=== PATIENT | male | born 1985 | race Caucasian/White ===

== ENCOUNTER 2020-04-18 00:16 | Emergency (ER) | payer OTHER ==
[~2020-04-18] VITALS: Ht 154.9 cm; Wt 68.0 kg
[2020-04-18] MEDS ORDERED: HALDOL DEC100 MG/1 M IM (00:31)
[2020-04-18] MEDS ORDERED: RESTORIL30 M1 PO (00:33)
[2020-04-18] MEDS ORDERED: ATIVAN1 M1 PO (00:34)
[2020-04-18] MEDS ORDERED: TRAZODONE HCL50 MG PO (00:34)
[2020-04-18] MEDS ORDERED: [UNRECOGNIZED DRUG - OTHER] PO (00:35)
[2020-04-18] MEDS ORDERED: KETO10TA2 PO (02:39)
== END 2020-04-18 02:53 | disposition home or self-care (01) ==
LOC: ER 00:16
DX: G89.11 Acute pain due to trauma (principal); M25.571 Pain in right ankle and joints of right foot; F41.8 Other specified anxiety disorders